=== PATIENT | male | born 1995 | race Caucasian/White ===

== ENCOUNTER 2020-12-27 11:09 | Emergency (ER) | payer SELFPAY ==
[~2020-12-27] VITALS: Ht 180.3 cm; Wt 113.6 kg
--- NOTE | 2020-12-27 12:10 | NUR ---
pt here for L ankle pain after "rolling it" while bowling last nocs pt is ambultory but presented to room via WC no obiovus swelling or deformity. CMS intact foot has been elevated and ice pack applied pt dinking water in room, advised to be NPO
--- NOTE | 2020-12-27 12:21 | NUR ---
report to Jorje COOLEY for lunch
[2020-12-27] MEDS ORDERED: IBUPROFEN 600 MG TABLET PO ONE (12:30)
[2020-12-27] MEDS ORDERED: IBUPROFEN 600 MG TABLET ONE (12:33)
--- NOTE | 2020-12-27 12:55 | NUR ---
tech at bedside for splint placement
[2020-12-27 13:33] VITALS: BP 137/83
== END 2020-12-27 13:38 | disposition home or self-care (01) ==
LOC: ED 12:04
DX: S92.355A Nondisplaced fracture of fifth metatarsal bone, left foot, initial encounter for closed fracture (principal); X58.XXXA Exposure to other specified factors, initial encounter; Y93.89 Activity, other specified; Y92.89 Other specified places as the place of occurrence of the external cause; Y99.8 Other external cause status
CPT/HCPCS: 29515; 99283